=== PATIENT | female | born 1965 ===

== ENCOUNTER 2016-12-26 17:03 | Emergency (ER) | payer OTHER ==
[2016-12-26 17:27] VITALS: BP 122/76; PULSE 71; RESP 18; TEMP 98; O2SAT 98
--- NOTE | 2016-12-26 17:56 | ED PDOC ---
HPI: Female Pain Time Seen by Provider: 12/26/16 17:33 Chief Complaint (Nursing): Female Genitourinary Chief Complaint (Provider): Female Genitourinary History Per: Patient History/Exam Limitations: no limitations Onset/Duration Of Symptoms: Worse Since (worsening since onset), Other (x3 weeks ) Current Symptoms Are (Timing): Still Present Associated Symptoms: Other (Abnormal vaginal discharge) Additional Complaint(s): 51 year old female presents to ED with complaints of vaginal discharge x3 weeks and has a past medical history of DM. Notes that discharge has been worsening since onset and appears whitish. States that it is associated with severe itching to the area as well as to the rectum. Notes occasional vaginal bleeding when she wipes. (-) rectal bleeding, hematuria, nausea, vomiting, diarrhea, constipation, or decreased appetite. (+) subjective fever x3 days for which she took Tylenol, dysuria, and urinary frequency. Notes that she ran out of Metformin x4 days ago. PCP: None Past Medical History Reviewed: Historical Data, Nursing Documentation, Vital Signs Vital Signs: Last Vital Signs Temp 98.0 F 12/26/16 17:25 Pulse 71 12/26/16 17:25 Resp 18 12/26/16 17:25 BP 122/76 12/26/16 17:25 Pulse Ox 98 12/26/16 17:25 - Medical History PMH: Diabetes, Gastritis - Surgical History Surgical History: Cholecystectomy - Family History Family History: States: Diabetes - Social History Current smoker - smoking cessation education provided: No Ex-Smoker (has not smoked in the last 12 months): No Alcohol: None Drugs: Denies - Home Medications Home Medications: Ambulatory Orders Medication Instructions Recorded Clotrimazole 1% Cream [Lotrimin 1%] 30 gm EXT BID #1 tube 12/29/14 Fluconazole [Diflucan] 150 mg PO ONCE #1 tab 01/30/15 Acyclovir [Zovirax] 800 mg PO 5XD #35 tablet 09/13/16 Ibuprofen [Motrin] 600 mg PO TID PRN #30 tab 09/13/16 - Allergies Allergies/Adverse Reactions: Allergies Allergy/AdvReac Type Severity Reaction Status Date / Time No Known Allergies Allergy Verified 01/30/15 16:08 Review of Systems ROS Statement: Except As Marked, All Systems Reviewed And Found Negative Constitutional: Positive for: Fever (subjective x3 days) Gastrointestinal: Positive for: Other ((+) rectal itching, (-) decreased appetite). Negative for: Nausea, Vomiting, Diarrhea, Constipation Genitourinary Female: Positive for: Dysuria, Frequency, Vaginal Discharge (x3 weeks), Vaginal Bleeding (occasional with wiping), Other (itching to the genital area). Negative for: Hematuria Physical Exam - Reviewed Nursing Documentation Reviewed: Yes Vital Signs Reviewed: Yes - Physical Exam Appears: Positive for: Non-toxic, Uncomfortable Head Exam: Positive for: ATRAUMATIC, NORMOCEPHALIC Skin: Positive for: Warm, Dry Gastrointestinal/Abdominal: Positive for: Soft. Negative for: Tenderness, Mass , Distended, Guarding Pelvic Exam: Positive for: No Cerv. Motion Tender, Lesions (Multiple pedunculated flesh colored lesions ranging in size from 3mm to 1cm along bilateral labia with surrounding erythema, white tips (home topical treatment v vaginitis)). Negative for: Active Bleeding, Blood, Cervicitis, Other (vaginal canal lesions or discharge) Back: Positive for: Normal Inspection. Negative for: L CVA Tenderness, R CVA Tenderness Lymphatic: Negative for: Adenopathy, Inguinal Node Tenderness - ECG O2 Sat by Pulse Oximetry: 98 (RA) Medical Decision Making Medical Decision Makin Initial plan: * UCx * UA Scribe Attestation: Documented by Una Arciniega acting as a scribe for Maddie El MD. Scribe Attestation: All medical record entries made by the Scribe were at my direction and personally dictated by me. I have reviewed the chart and agree that the record accurately reflects my personal performance of the history, physical exam, medical decision making, and the department course for this patient. I have also personally directed, reviewed, and agree with the discharge instructions and disposition. Disposition - Clinical Impression Clinical Impression: Condyloma acuminata, Vaginitis Counseled Patient/Family Regarding: Studies Performed, Diagnosis, Need For Followup, Rx Given - Disposition Referrals: [facility] [Outside] [facility] [Outside] Disposition: Routine/Home Disposition Time: 18:31 Condition: GOOD
[2016-12-26 18:58] LABS: RBC URINE 27 /hpf (0-3); URINE BACTERIA RARE (<OCC); URINE BILIRUBIN NEGATIVE (NEGATIVE); URINE BLOOD MODERATE (NEGATIVE); URINE COLOR YELLOW (YELLOW); URINE GLUCOSE (UA) >=500 mg/dL (Normal); URINE KETONE NEGATIVE (NEGATIVE); URINE LEUKOCYTE ESTERASE MOD Leu/uL (Negative); URINE PROTEIN 30 mg/dL (NEGATIVE); URINE UROBILINOGEN 0.2-1.0 mg/dL (0.2-1.0); WBC URINE 18 /hpf (0-5)
== END 2016-12-26 19:57 | disposition home or self-care (01) ==
LOC: H.ER 17:03
DX: A63.0 Anogenital (venereal) warts (principal); N76.0 Acute vaginitis; E11.9 Type 2 diabetes mellitus without complications; Z87.891 Personal history of nicotine dependence

== ENCOUNTER 2017-08-16 20:07 | Emergency (ER) | payer SELFPAY ==
[2017-08-16 20:25] VITALS: BMI 28.4
[2017-08-16 20:28] VITALS: BP 141/78; PULSE 88; RESP 18; TEMP 98.8; O2SAT 98
--- NOTE | 2017-08-16 22:00 | ED PDOC ---
HPI: General Adult Time Seen by Provider: 08/16/17 20:55 Chief Complaint (Nursing): GI Problem Chief Complaint (Provider): Rectal pain and dysuria History Per: Patient History/Exam Limitations: no limitations Onset/Duration Of Symptoms: Days (3), Intermittent Episodes Additional Complaint(s): Patient is a 52 y/o female with a past medical history of hemorrhoids and diabetes presenting to the emergency department for rectal pain and bleeding and dysuria ongoing intermittently for three days. Describes her dysuria as a burning and itching sensation. Denies abdominal pain, nausea, vomiting, diarrhea, fever, cough, or other complaints. PCP: none provided. Past Medical History Reviewed: Historical Data, Nursing Documentation, Vital Signs Vital Signs: Last Vital Signs Temp 98.8 F 08/16/17 20:26 Pulse 88 08/16/17 20:26 Resp 18 08/16/17 20:26 BP 141/78 08/16/17 20:26 Pulse Ox 98 08/16/17 22:07 - Medical History PMH: Diabetes, Gastritis Other PMH: Hemorrhoids - Surgical History Surgical History: Cholecystectomy - Family History Family History: States: Diabetes - Social History Current smoker - smoking cessation education provided: No Ex-Smoker (has not smoked in the last 12 months): No Alcohol: None Drugs: Denies - Home Medications Home Medications: Ambulatory Orders Medication Instructions Recorded Clotrimazole 1% Cream [Lotrimin 1%] 30 gm EXT BID #1 tube 12/29/14 Fluconazole [Diflucan] 150 mg PO ONCE #1 tab 01/30/15 Acyclovir [Zovirax] 800 mg PO 5XD #35 tablet 09/13/16 Ibuprofen [Motrin] 600 mg PO TID PRN #30 tab 09/13/16 Fluconazole [Diflucan] 150 mg PO QWK #2 tab 12/26/16 Imiquimod 1 appl TOP QWK #12 packet 12/26/16 Nitrofurantoin Macrocrystals 1 cap PO BID #14 cap 12/26/16 [Macrobid] Azithromycin 1 gm PO ONCE #1 packet 12/29/16 Azithromycin 1 gm PO ONCE #1 packet 12/29/16 Azithromycin 1 gm PO ONCE #1 packet 12/29/16 Hard Fat/Phenylephrine Dupont 1 supp IN QAM #14 sup 08/16/17 [Hemorrhoidal 88.7%-0.25%] Nitrofurantoin Macrocrystals 100 mg PO BID #14 cap 08/16/17 [Macrobid] - Allergies Allergies/Adverse Reactions: Allergies Allergy/AdvReac Type Severity Reaction Status Date / Time No Known Allergies Allergy Verified 08/16/17 20:25 Review of Systems ROS Statement: Except As Marked, All Systems Reviewed And Found Negative Constitutional: Negative for: Fever Respiratory: Negative for: Cough Gastrointestinal: Positive for: Rectal Pain (and bleeding). Negative for: Nausea, Vomiting, Abdominal Pain, Diarrhea Genitourinary Female: Positive for: Dysuria Physical Exam - Reviewed Nursing Documentation Reviewed: Yes Vital Signs Reviewed: Yes - Physical Exam Appears: Positive for: Well, Non-toxic, No Acute Distress Head Exam: Positive for: ATRAUMATIC, NORMAL INSPECTION, NORMOCEPHALIC Skin: Positive for: Normal Color, Warm, Dry Eye Exam: Positive for: Normal appearance Neck: Positive for: Normal, Painless ROM Cardiovascular/Chest: Positive for: Regular Rate, Rhythm Respiratory: Negative for: Accessory Muscle Use, Respiratory Distress Gastrointestinal/Abdominal: Positive for: Normal Exam, Soft, Tenderness ( suprapubic) Back: Positive for: Normal Inspection Rectal: Positive for: Normal Exam (only rectal inspection performed, chaperoned by OSMIN Haddad), Hemorrhoids (1 cm external hemorrhoid with no evidence of thrombus formation) Extremity: Positive for: Normal ROM. Negative for: Pedal Edema Neurologic/Psych: Positive for: Alert, Oriented (x3) - Laboratory Results Result Diagrams: 08/16/17 22:11 08/16/17 22:11 - ECG O2 Sat by Pulse Oximetry: 98 (RA) Pulse Ox Interpretation: Normal Medical Decision Making Medical Decision Making: Time: 21:58 Initial impression: Patient is a 52 y/o female presenting with dysuria and rectal bleeding in setting of known hemorrhoids and diabetes. Initial plan: EKG CMP ED Urine Dipstick ED Urine CBC Pyridium 200 mg PO Accucheck Urinalysis Reevaluation Reassess: 11:40 Labs reviewed and revealed no clinically significant abnormalities, except for glucose, which was higher than normal because of the patient's known history of diabetes, and urine was significant for a UTI. Patient reports of improved symptoms and is stable for discharge. Diagnosis: UTI and rectal hemorrhoids. Scribe Attestation: Documented by Damaris Bro, acting as a scribe for Micky Christine MD. Provider Scribe Attestation: All medical record entries made by the Scribe were at my direction and personally dictated by me. I have reviewed the chart and agree that the record accurately reflects my personal performance of the history, physical exam, medical decision making, and the department course for this patient. I have also personally directed, reviewed, and agree with the discharge instructions and disposition. Disposition - Clinical Impression Clinical Impression: External hemorrhoid, UTI (urinary tract infection) - Patient ED Disposition Is Patient to be Admitted: No - Disposition Referrals: [facility] [Outside] Disposition: Routine/Home Disposition Time: 11:40 Condition: IMPROVED Prescriptions: Hard Fat/Phenylephrine Dupont [Hemorrhoidal 88.7%-0.25%] 1 supp IN QAM #14 sup Nitrofurantoin Macrocrystals [Macrobid] 100 mg PO BID #14 cap Instructions: Hydrocortisone (Into the rectum), Hemorrhoids (ED), Urinary Tract Infection in Women (ED) Forms: [employer] ([place]atemalan)
[2017-08-16 22:17] LABS: BASO # 0.1 K/uL (0.0-0.2); BASO % 0.6 % (0.0-2.0); EOS # 0.5 K/uL (0.0-0.7); EOS % 5.1 % (0.0-4.0); HEMOGLOBIN 12.7 g/dL (12.0-16.0); LYMPH # 3.3 K/uL (1.0-4.3); LYMPH % 35.8 % (20.0-40.0); MEAN CELL VOLUME 83.3 fl (81.0-99.0); MEAN CORPUSCULAR HGB CONC 32.4 g/dL (33.0-37.0); MEAN PLATELET VOLUME 9.9 fl (7.2-11.7); MONO # 0.6 K/uL (0.0-0.8); MONO % 6.1 % (0.0-10.0); NEUT # 4.8 K/uL (1.8-7.0); NEUT % 52.4 % (50.0-75.0); NRBC % 0.1 % (0.0-0.0); RBC 4.72 Mil/uL (3.80-5.20); RED CELL DISTRIBUTION WIDTH 13.9 % (11.5-14.5); WHITE BLOOD COUNT 9.1 K/uL (4.8-10.8)
[2017-08-16 22:28] LABS: SQUAMOUS EPITHIAL 13 /hpf (0-5); URINE BACTERIA FEW (<OCC); URINE BILIRUBIN NEGATIVE (NEGATIVE); URINE BLOOD SMALL (NEGATIVE); URINE CLARITY CLOUDY (Clear); URINE COLOR YELLOW (YELLOW); URINE GLUCOSE (UA) >=500 mg/dL (Normal); URINE LEUKOCYTE ESTERASE LARGE Leu/uL (Negative); URINE NITRATE NEGATIVE (NEGATIVE); URINE PROTEIN NEGATIVE (NEGATIVE); URINE UROBILINOGEN 0.2-1.0 mg/dL (0.2-1.0)
[2017-08-16 22:30] LABS: ALB/GLOB RATIO 1.1 (1.0-2.1); ALT/SGPT 55 U/L (9-52); AST/SGOT 28 U/L (14-36); BLOOD UREA NITROGEN 9 mg/dl (7-17); CALCIUM 8.9 mg/dL (8.4-10.2); GFR AFRICAN-AMERICAN > 60; GFR NON-AFRICAN AMERICAN > 60
[2017-08-16] MEDS ORDERED: cefTRIAXone IV 1 gm in Dextros 50 ML IVPB STA (22:33)
--- NOTE | 2017-08-17 11:04 | CARD ---
APPROVED REPORT EKG Measurement Heart [id number] CA [id number] <Conclusion> Normal sinus rhythm Normal ECG
== END 2017-08-17 02:16 | disposition home or self-care (01) ==
LOC: H.ER 20:07
DX: K64.4 Residual hemorrhoidal skin tags (principal); N39.0 Urinary tract infection, site not specified; E11.9 Type 2 diabetes mellitus without complications
CPT/HCPCS: 80053; 81003; 82948; 85025; 93005; 99283; J0696